=== PATIENT | female | born 1980 | race Caucasian/White ===

== ENCOUNTER 2017-09-19 22:29 | Inpatient (IN) | payer MEDICAID ==
[~2017-09-19] VITALS: Ht 172.7 cm; Wt 63.5 kg
[~2017-09-19 22:29] MED LIST: CEPH500C5 PO
[2017-09-19] MEDS ORDERED: NO HOME MEDS (22:55)
[2017-09-20] MEDS ORDERED: normal saline 1000ML IV soln IV ONE (00:25)
[2017-09-20] MEDS ORDERED: piperacillin/tazo 3.375gm/50ml 50 ML IV ONE (00:25)
[2017-09-20] MEDS ORDERED: vancomycin/NS 1 GM ADD-VANTAGE 250 ML IV ONE (00:25)
[2017-09-20] MEDS ORDERED: TETanus/Pertussis (Acell)/Diphther VAC/PF (Tdap-Adult) 0.5ml syringe IM ONE (00:25)
[2017-09-20 00:34] LABS: HEMOGLOBIN 10.9 g/dl (12.0-16.0); MEAN CORPUSCULAR HEMOGLOBIN 28.8 PG (27.0-31.0); RED CELL DISTRIBUTION WIDTH 12.9 % (11.5-14.5)
[2017-09-20 00:36] LABS: BASOPHILS # (AUTO) 0.1 X10'3 (0-0.2); EOSINOPHILS # (AUTO) 0.3 X10'3 (0-0.9); EOSINOPHILS % (AUTO) 5.3 % (0-6); HEMATOCRIT 31.5 % (35.0-45.0); LYMPHOCYTES # (AUTO) 0.9 X10'3 (1.1-4.8); LYMPHOCYTES % (AUTO) 17.5 % (21-51); MEAN CORPUSCULAR HGB CONC 34.6 % (33.0-36.5); MEAN CORPUSCULAR VOLUME 83.2 FL (78-98); MONOCYTES # (AUTO) 0.4 X10'3 (0-0.9); NEUTROPHILS # (AUTO) 3.4 X10'3 (1.8-7.7); NEUTROPHILS % (AUTO) 68.2 % (42-75); PLATELET COUNT 292 X10'3 (140-440); RED BLOOD COUNT 3.79 X10'6 (4.20-5.60); WHITE BLOOD COUNT 5.1 X10'3 (4.5-11.0)
[2017-09-20 00:47] LABS: ALANINE AMINOTRANSFERASE 271 U/L (12-78); ALBUMIN 3.4 G/DL (3.4-5.0); ALKALINE PHOSPHATASE 141 IU/L (46-116); ANION GAP 9 (8-16); ASPARTATE AMINO TRANSFERASE 302 U/L (10-37); BILIRUBIN,TOTAL 0.5 MG/DL (0.1-1.0); BLOOD UREA NITROGEN 10 MG/DL (7-18); BUN/CREATININE RATIO 11.9 (6.6-38.0); CALCIUM 8.8 MG/DL (8.5-10.1); CHLORIDE 104 MMOL/L (99-107); CREATININE 0.84 MG/DL (0.40-0.90); GLUCOSE 127 MG/DL (70-104); MAGNESIUM 1.8 MG/DL (1.5-2.4); SODIUM 140 MMOL/L (135-145); TOTAL CARBON DIOXIDE 26.8 MMOL/L (24-32); TOTAL PROTEIN 6.8 G/DL (6.4-8.2); eGFR 77 ML/MIN
[2017-09-20] MEDS ORDERED: nicotine 14mg patch - 24hr TD ONE ×2 (01:00→01:30)
[2017-09-20] MEDS ORDERED: morphine 4 MG/ML inj SYRINge IV ONE (01:25)
[2017-09-20] MEDS ORDERED: ondansetron/PF 4mg/2ml inj IV ONE (01:25)
[2017-09-20] MEDS ORDERED: magnesium hydroxide 30ml (MOM) UD suspension PO PRN ×2 (01:30→17:10)
[2017-09-20] MEDS ORDERED: acetaminophen 325mg tablet PO PRN ×2 (01:30)
[2017-09-20] MEDS ORDERED: ibuprofen tablet 400 MG TABLET PO PRN (01:30)
[2017-09-20] MEDS ORDERED: mag hydrox/Alum hydrox/simeth 30ml oral suspension PO PRN (01:30)
[2017-09-20] MEDS ORDERED: ondansetron/PF 4mg/2ml inj IV PRN (01:30)
[2017-09-20 02:08] LABS: URINE AMPHETAMINE SCREEN POSITIVE (Neg); URINE BARBITUATE SCREEN NEGATIVE (Neg); URINE BENZODIAZEPINES SCREEN POSITIVE (Neg); URINE CANNABINOID SCREEN POSITIVE (Neg); URINE COCAINE SCREEN NEGATIVE (Neg); URINE METHADONE SCREEN POSITIVE (Neg); URINE OPIATE SCREEN POSITIVE (Neg); URINE PHENCYCLIDINE SCREEN NEGATIVE (Neg)
[2017-09-20 03:00] VITALS: BP 94/54
[2017-09-20 06:00] VITALS: BP 88/52
[2017-09-20] MEDS: HYDROcodone/acetaminophen 5mg/325mg tablet PO PRN ×4 (07:21→20:26)
[2017-09-20] MEDS: enoxaparin 40mg/0.4ml syringe SQ SCH (07:22)
[2017-09-20 10:00] VITALS: BP 106/67
[2017-09-20] MEDS: piperacillin/tazo 3.375gm/50ml 50 ML IV SCH ×3 (12:32→19:49)
[2017-09-20] MEDS: vancomycin/NS 1 GM ADD-VANTAGE 250 ML IV SCH ×2 (13:16→20:26)
[2017-09-20] MEDS ORDERED: magnesium hydroxide 30ml (MOM) UD suspension PO ONE (17:05)
[2017-09-20 18:00] VITALS: BP 105/70
[2017-09-20 21:38] VITALS: BP 146/68
[2017-09-20 22:00] VITALS: BP 99/59
[2017-09-21] MEDS: piperacillin/tazo 3.375gm/50ml 50 ML IV SCH ×4 (01:25→20:46)
[2017-09-21] MEDS: vancomycin/NS 1 GM ADD-VANTAGE 250 ML IV SCH ×2 (04:05→13:56)
[2017-09-21] MEDS: HYDROcodone/acetaminophen 5mg/325mg tablet PO PRN ×4 (05:25→18:56)
[2017-09-21 06:00] VITALS: BP 108/70
[2017-09-21 06:17] LABS: BASOPHILS % (AUTO) 0.9 % (0-1); EOSINOPHILS # (AUTO) 0.3 X10'3 (0-0.9); EOSINOPHILS % (AUTO) 6.4 % (0-6); HEMATOCRIT 34.8 % (35.0-45.0); LYMPHOCYTES % (AUTO) 21.3 % (21-51); MEAN CORPUSCULAR HEMOGLOBIN 29.1 PG (27.0-31.0); MEAN CORPUSCULAR HGB CONC 34.5 % (33.0-36.5); MEAN CORPUSCULAR VOLUME 84.5 FL (78-98); MEAN PLATELET VOLUME 7.7 FL (7.4-10.4); MONOCYTES # (AUTO) 0.4 X10'3 (0-0.9); MONOCYTES % (AUTO) 7.7 % (2-12); NEUTROPHILS % (AUTO) 63.7 % (42-75); PLATELET COUNT 274 X10'3 (140-440); RED BLOOD COUNT 4.12 X10'6 (4.20-5.60); RED CELL DISTRIBUTION WIDTH 12.6 % (11.5-14.5); WHITE BLOOD COUNT 4.7 X10'3 (4.5-11.0)
[2017-09-21 06:30] LABS: ALBUMIN 2.8 G/DL (3.4-5.0); ANION GAP 7 (8-16); BLOOD UREA NITROGEN 8 MG/DL (7-18); BUN/CREATININE RATIO 8.2 (6.6-38.0); CALCIUM 8.7 MG/DL (8.5-10.1); CHLORIDE 106 MMOL/L (99-107); CREATININE 0.97 MG/DL (0.40-0.90); GLUCOSE 102 MG/DL (70-104); POTASSIUM 4.1 MMOL/L (3.5-5.1); SODIUM 140 MMOL/L (135-145); TOTAL CARBON DIOXIDE 27.1 MMOL/L (24-32); eGFR 65 ML/MIN
[2017-09-21] MEDS: enoxaparin 40mg/0.4ml syringe SQ SCH (09:44)
[2017-09-21] MEDS: nicotine 21mg patch - 24 hr TD SCH (10:45)
[2017-09-21] MEDS ORDERED: gadopentetate dimeglumine 7.5 MMOL/15 ML syringe ONE (11:03)
[2017-09-21 11:30] VITALS: BP 95/58
[2017-09-21] MEDS ORDERED: VANCOMYCIN LEVEL IV NR (12:30)
[2017-09-21 13:21] LABS: HBSAG SCREEN Negative (Negative); HEP A AB, IGM Negative (Negative); HEP B CORE AB, IGM Negative (Negative); HEPATITIS C ANTIBODY >11.0 s/co ratio (0.0-0.9)
[2017-09-21 19:00] VITALS: BP 105/69
[2017-09-21] MEDS: lactobacillus rhamnosus 10,000 MMU CELLS/CAPSULE PO SCH (20:48)
[2017-09-21] MEDS: vancomycin inj 1,250 MG in normal saline 250ml IV soln 250 ML IV SCH (21:40)
[2017-09-21 23:00] VITALS: BP 97/58
[2017-09-22] MEDS: HYDROcodone/acetaminophen 5mg/325mg tablet PO PRN ×4 (01:26→14:20)
[2017-09-22] MEDS: piperacillin/tazo 3.375gm/50ml 50 ML IV SCH ×2 (02:04→09:28)
[2017-09-22] MEDS: vancomycin inj 1,250 MG in normal saline 250ml IV soln 250 ML IV SCH (05:21)
[2017-09-22 06:00] VITALS: BP 102/57
[2017-09-22 06:27] LABS: ALANINE AMINOTRANSFERASE 226 U/L (12-78); ALBUMIN 2.7 G/DL (3.4-5.0); ALBUMIN/GLOBULIN RATIO 0.8 (1.1-1.5); ALKALINE PHOSPHATASE 115 IU/L (46-116); ANION GAP 9 (8-16); ASPARTATE AMINO TRANSFERASE 127 U/L (10-37); BILIRUBIN,DIRECT 0.1 MG/DL (0-0.3); BILIRUBIN,TOTAL 0.4 MG/DL (0.1-1.0); BLOOD UREA NITROGEN 6 MG/DL (7-18); BUN/CREATININE RATIO 6.7 (6.6-38.0); CALCIUM 8.6 MG/DL (8.5-10.1); CHLORIDE 107 MMOL/L (99-107); GLUCOSE 98 MG/DL (70-104); POTASSIUM 3.7 MMOL/L (3.5-5.1); SODIUM 140 MMOL/L (135-145); TOTAL CARBON DIOXIDE 24.4 MMOL/L (24-32); TOTAL PROTEIN 6.2 G/DL (6.4-8.2); eGFR 71 ML/MIN
[2017-09-22 06:49] LABS: BASOPHILS % (AUTO) 0.9 % (0-1); EOSINOPHILS # (AUTO) 0.3 X10'3 (0-0.9); HEMATOCRIT 34.8 % (35.0-45.0); HEMOGLOBIN 11.9 g/dl (12.0-16.0); LYMPHOCYTES # (AUTO) 1.4 X10'3 (1.1-4.8); LYMPHOCYTES % (AUTO) 31.8 % (21-51); MEAN CORPUSCULAR HEMOGLOBIN 28.7 PG (27.0-31.0); MEAN CORPUSCULAR HGB CONC 34.2 % (33.0-36.5); MEAN CORPUSCULAR VOLUME 83.9 FL (78-98); MEAN PLATELET VOLUME 7.6 FL (7.4-10.4); MONOCYTES # (AUTO) 0.3 X10'3 (0-0.9); MONOCYTES % (AUTO) 7.8 % (2-12); NEUTROPHILS # (AUTO) 2.4 X10'3 (1.8-7.7); NEUTROPHILS % (AUTO) 53.5 % (42-75); PLATELET COUNT 290 X10'3 (140-440); RED BLOOD COUNT 4.15 X10'6 (4.20-5.60); RED CELL DISTRIBUTION WIDTH 12.3 % (11.5-14.5); WHITE BLOOD COUNT 4.5 X10'3 (4.5-11.0)
[2017-09-22 08:46] LABS: HIV ANTIBODY 1&2 RAPID NON-REACTIVE (Neg)
[2017-09-22] MEDS: lactobacillus rhamnosus 10,000 MMU CELLS/CAPSULE PO SCH (09:28)
[2017-09-22] MEDS: nicotine 21mg patch - 24 hr TD SCH (09:29)
[2017-09-22 10:00] VITALS: BP 109/69
[2017-09-22] MEDS ORDERED: LORazepam 0.5 MG tablet PO PRN (10:00)
[2017-09-22] MEDS ORDERED: VANCOMYCIN LEVEL IV ONE (20:30)
== END 2017-09-22 16:25 | disposition left against medical advice (07) | DRG 383 ==
LOC: ER 22:30 → ED HOLD 09-20 01:27 → ORTHO 4S 09-20 02:40 → CMPBEDREQ 09-20 19:40
PROVIDERS: ADMIT Hospitalist; ATTEND Family Medicine
DX: L03.115 Cellulitis of right lower limb (principal); F32.9 Major depressive disorder, single episode, unspecified; L03.116 Cellulitis of left lower limb; F17.200 Nicotine dependence, unspecified, uncomplicated; F15.10 Other stimulant abuse, uncomplicated; F41.9 Anxiety disorder, unspecified; R74.0 Nonspecific elevation of levels of transaminase and lactic acid dehydrogenase [LDH]; B19.20 Unspecified viral hepatitis C without hepatic coma; X58.XXXA Exposure to other specified factors, initial encounter; R01.1 Cardiac murmur, unspecified; Z53.21 Procedure and treatment not carried out due to patient leaving prior to being seen by health care provider; S81.802D Unspecified open wound, left lower leg, subsequent encounter; Z56.0 Unemployment, unspecified; Z98.891 History of uterine scar from previous surgery; Z98.51 Tubal ligation status; Z88.6 Allergy status to analgesic agent; Z88.8 Allergy status to other drugs, medicaments and biological substances; Z79.899 Other long term (current) drug therapy; Z86.14 Personal history of Methicillin resistant Staphylococcus aureus infection
CPT/HCPCS: 36415; 73721; 80048; 80053; 80074; 80076; 80202; 80305; 83605; 83735; 84145; 85025; 86703; 87040; 87070; 87077; 87186; 90715; 93005; 93306; 93971; 96365; 96372; 99285; A4649; A6213; A6222; A6223; A6446; A6449; A9579; J1650; J2270; J2405; J2543; J3370; J7030

== ENCOUNTER 2018-12-18 14:57 | Emergency (ER) | payer MEDICAID ==
[~2018-12-18] VITALS: Ht 170.2 cm; Wt 63.4 kg
[~2018-12-18 14:57] MED LIST changes: -CEPH500C5 PO; +NO HOME MEDS
[2018-12-18] MEDS ORDERED: LIDOcaine 1% w/EPI 1:200,000 injection 10mL vial IM ONE (15:25)
[2018-12-18] MEDS ORDERED: SULF1TAB49 PO (15:29)
[2018-12-18] MEDS ORDERED: CEPH-572 PO (15:29)
[2018-12-18] MEDS ORDERED: LIDOcaine 1% W/epiNEPHrine 1:200,000 10ml vial IJ ONE (15:35)
[2018-12-18] MEDS ORDERED: IBUP-1984 PO (16:13)
[2018-12-18] MEDS ORDERED: ibuprofen tablet 400 MG TABLET PO ONE (16:15)
[2018-12-18 16:32] VITALS: BP 105/69
== END 2018-12-18 16:30 | disposition home or self-care (01) ==
LOC: ER 14:57
DX: L02.31 Cutaneous abscess of buttock (principal); G89.29 Other chronic pain; F41.9 Anxiety disorder, unspecified; F32.9 Major depressive disorder, single episode, unspecified; F15.90 Other stimulant use, unspecified, uncomplicated; F11.90 Opioid use, unspecified, uncomplicated; F10.99 Alcohol use, unspecified with unspecified alcohol-induced disorder; Z56.0 Unemployment, unspecified; Z88.8 Allergy status to other drugs, medicaments and biological substances; Z88.5 Allergy status to narcotic agent; Z79.899 Other long term (current) drug therapy; Y90.9 Presence of alcohol in blood, level not specified
CPT/HCPCS: 10061; 87070; 87077; 87186; 99284

== ENCOUNTER 2019-02-08 12:10 | Emergency (ER) | payer MEDICAID ==
[~2019-02-08] VITALS: Ht 172.7 cm; Wt 60.9 kg
[2019-02-08 12:27] VITALS: BP 108/70
[2019-02-08] MEDS ORDERED: CEPH-572 PO (15:54)
[2019-02-08] MEDS ORDERED: SULF1TAB49 PO (15:54)
[2019-02-08] MEDS ORDERED: IBUP-1985 PO (15:57)
== END 2019-02-08 16:01 | disposition home or self-care (01) ==
LOC: ER 12:11
DX: L02.415 Cutaneous abscess of right lower limb (principal); F11.10 Opioid abuse, uncomplicated; G89.29 Other chronic pain; F41.9 Anxiety disorder, unspecified; F32.9 Major depressive disorder, single episode, unspecified; F15.90 Other stimulant use, unspecified, uncomplicated; Z56.0 Unemployment, unspecified; Z88.5 Allergy status to narcotic agent; Z88.8 Allergy status to other drugs, medicaments and biological substances; Z79.899 Other long term (current) drug therapy
CPT/HCPCS: 10061; 99284

== ENCOUNTER 2019-02-11 15:10 | Inpatient (IN) | payer MEDICAID ==
[~2019-02-11] VITALS: Ht 172.7 cm; Wt 61.4 kg
[~2019-02-11 15:10] MED LIST changes: +CEPH-572 PO; +IBUP-1985 PO; +SULF1TAB49 PO
--- NOTE | 2019-02-11 15:30 | NUR ---
AWAITING ED PROVIDER.
[2019-02-11] MEDS ORDERED: LIDOcaine 1% w/EPI 1:200,000 injection 10mL vial IM ONE (16:05)
[2019-02-11] MEDS ORDERED: LIDOcaine 1% W/epiNEPHrine 1:200,000 10ml vial IJ ONE (16:10)
[2019-02-11 16:21] LABS: BASOPHILS # (AUTO) 0.1 X10'3 (0-0.2); EOSINOPHILS # (AUTO) 0.5 X10'3 (0-0.9); EOSINOPHILS % (AUTO) 5.8 % (0-6); HEMATOCRIT 30.3 % (35.0-45.0); HEMOGLOBIN 10.8 g/dl (12.0-16.0); LYMPHOCYTES # (AUTO) 1.4 X10'3 (1.1-4.8); LYMPHOCYTES % (AUTO) 17.6 % (21-51); MEAN CORPUSCULAR HEMOGLOBIN 29.2 PG (27.0-31.0); MEAN CORPUSCULAR HGB CONC 35.6 g/dL (33.0-36.5); MEAN PLATELET VOLUME 7.2 FL (7.4-10.4); MONOCYTES # (AUTO) 0.6 X10'3 (0-0.9); MONOCYTES % (AUTO) 7.5 % (2-12); NEUTROPHILS # (AUTO) 5.3 X10'3 (1.8-7.7); NEUTROPHILS % (AUTO) 68.1 % (42-75); PLATELET COUNT 335 X10'3 (140-440); RED CELL DISTRIBUTION WIDTH 12.5 % (11.5-14.5); WHITE BLOOD COUNT 7.8 X10'3 (4.5-11.0)
[2019-02-11 16:30] LABS: ALANINE AMINOTRANSFERASE 56 U/L (12-78); ALBUMIN/GLOBULIN RATIO 0.8 (1.1-1.5); ALKALINE PHOSPHATASE 111 IU/L (46-116); ANION GAP 8 (8-16); ASPARTATE AMINO TRANSFERASE 44 U/L (10-37); BILIRUBIN,TOTAL 0.3 MG/DL (0.1-1.0); BLOOD UREA NITROGEN 14 MG/DL (7-18); CALCIUM 8.4 MG/DL (8.5-10.1); CHLORIDE 106 MMOL/L (99-107); GLUCOSE 86 MG/DL (70-104); POTASSIUM 4.2 MMOL/L (3.5-5.1); SODIUM 142 MMOL/L (135-145); TOTAL CARBON DIOXIDE 28.3 MMOL/L (24-32); TOTAL PROTEIN 6.8 G/DL (6.4-8.2); eGFR > 90 ML/MIN
[2019-02-11] MEDS ORDERED: HYDROcodone/acetaminophen 5mg/325mg tablet PO ONE ×3 (16:30→17:10)
[2019-02-11] MEDS ORDERED: LORazepam 1 MG tablet PO ONE (17:05)
[2019-02-11] MEDS ORDERED: normal saline 1000ML IV soln IVB ONE (17:10)
[2019-02-11] MEDS ORDERED: piperacillin/tazo 3.375gm/50ml 50 ML IV ONE (17:10)
[2019-02-11] MEDS ORDERED: vancomycin/NS 1 GM ADD-VANTAGE 250 ML IV ONE (17:10)
[2019-02-11] MEDS ORDERED: LORazepam 2 mg/ml vial IV ONE (17:10)
[2019-02-11] MEDS ORDERED: ondansetron/PF 4mg/2ml inj IV PRN (17:50)
[2019-02-11] MEDS ORDERED: HYDROcodone/acetaminophen 5mg/325mg tablet PO PRN (17:50)
[2019-02-11] MEDS ORDERED: acetaminophen 325mg tablet PO PRN (17:50)
[2019-02-11] MEDS ORDERED: mag hydrox/Alum hydrox/simeth 30ml oral suspension PO PRN (17:50)
[2019-02-11] MEDS ORDERED: morphine 2 MG/ML inj. syringe IV PRN ×2 (17:50)
[2019-02-11] MEDS ORDERED: magnesium hydroxide 30ml (MOM) UD suspension PO PRN (17:50)
--- NOTE | 2019-02-11 18:00 | NUR ---
PATIENT TO BE PLACED IN CLEAN GOWN
[2019-02-11] MEDS ORDERED: GABA-532 PO (18:58)
[2019-02-11] MEDS ORDERED: DULO20CA18 PO (18:58)
--- NOTE | 2019-02-11 18:59 | NUR ---
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
--- NOTE | 2019-02-11 19:00 | NUR ---
Called to give report. awaiting call back.
--- NOTE | 2019-02-11 19:02 | NUR ---
ALL PATIENT BELONGINGS TO GO HOME WITH HER MOTHER
--- NOTE | 2019-02-11 19:05 | NUR ---
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
[2019-02-11] MEDS ORDERED: SULF1TAB49 PO (19:09)
[2019-02-11] MEDS ORDERED: CEPH500C2 PO (19:09)
[2019-02-11] MEDS ORDERED: IBUP-1985 PO (19:09)
--- NOTE | 2019-02-11 19:10 | NUR ---
Patient in room ED 6. I have received report from JOSELITO SRINIVASAN and had the opportunity to ask questions and assume patient care.
--- NOTE | 2019-02-11 19:23 | NUR ---
security in room removing contraband.
--- NOTE | 2019-02-11 19:24 | NUR ---
Spoke to floor nurse and she was aware that a urine sample needs to be obtained.
--- NOTE | 2019-02-11 19:59 | NUR ---
attempted to DART pt she was currently eating, asked for me to come back later.
[2019-02-11] MEDS ORDERED: vancomycin/NS 1 GM ADD-VANTAGE 250 ML IV SCH (20:00)
--- NOTE | 2019-02-11 20:00 | NUR ---
ON SURGICAL FLOOR, MOTHER TOOK ALL OF PATIENT'S BELONGINGS HOME INCLUDING 2 KNIVES, LIGHTERS AND PIPES.
[2019-02-11 20:45] VITALS: BP 110/72
[2019-02-11] MEDS ORDERED: nicotine 14mg patch - 24hr TD SCH (20:50)
[2019-02-11 22:00] VITALS: BP 87/50
[2019-02-11 22:14] LABS: CLARITY,URINE SLIGHTLY CLOUDY (Clear); GLUCOSE, URINE NEGATIVE (Neg); KETONES,URINE NEGATIVE (Neg); LEUKOCYTE ESTERASE ,URINE NEGATIVE (Neg); NITRITES, URINE NEGATIVE (Neg); OCCULT BLOOD,URINE NEGATIVE (Neg); PH,URINE 6.5 (4.8-8.0); PROTEIN,URINE TRACE mg/dl (Neg)
[2019-02-11 22:19] LABS: COLOR,URINE DARK YELLOW (Yellow); UA COLLECTION TYPE CLN CATCH MIDSTREAM; URINE AMPHETAMINE SCREEN POSITIVE (Neg); URINE BARBITUATE SCREEN NEGATIVE (Neg); URINE BENZODIAZEPINES SCREEN NEGATIVE (Neg); URINE CANNABINOID SCREEN POSITIVE (Neg); URINE COCAINE SCREEN NEGATIVE (Neg); URINE METHADONE SCREEN NEGATIVE (Neg); URINE OPIATE SCREEN POSITIVE (Neg); URINE PHENCYCLIDINE SCREEN NEGATIVE (Neg)
[2019-02-11 22:24] LABS: BACTERIA,URINE 1+ /HPF (Neg); MUCUS STRANDS MODERATE /LPF (Neg); RBC,URINE NONE SEEN /HPF (0-2); SQUAMOUS EPITHELIAL CELL,UR MANY /LPF (FEW); WBC,URINE 0-4 /HPF (0-4)
[2019-02-12] MEDS ORDERED: normal saline 1000ml 1,000 ML IV ONE ×2 (01:45→03:35)
[2019-02-12] MEDS ORDERED: vancomycin/NS 1 GM ADD-VANTAGE 250 ML IV SCH (02:00)
[2019-02-12] MEDS: HYDROcodone/acetaminophen 10/325mg tab PO PRN ×2 (03:21→08:17)
--- NOTE | 2019-02-12 03:27 | NUR ---
Received report from Kaelyn SRINIVASAN, pt is awake and alert bolus just finished, stephen worley, B/P rechecked:
--- NOTE | 2019-02-12 04:00 | NUR ---
Problems reprioritized. Patient report given, questions answered & plan of care reviewed with Etta SRINIVASAN.
[2019-02-12 04:54] VITALS: BP 90/59
--- NOTE | 2019-02-12 06:17 | NUR ---
Gave report to Mariela SRINIVASAN pt is resting on RA, SL EJ, in no apparent distress.
--- NOTE | 2019-02-12 06:52 | NUR ---
Pt. has false nails. Pulse oximeter should be used on toes rather than fingers for a more accurate reading. Addendum: 02/12/19 at 0652 by Mariela Herzog RN Amended: Links added.
[2019-02-12] MEDS ORDERED: LORA-269 PO (06:56)
[2019-02-12 07:00] VITALS: BP 93/55
[2019-02-12] MEDS ORDERED: enoxaparin 40mg/0.4ml syringe SUBCUT SCH (08:00)
[2019-02-12] MEDS ORDERED: lactobacillus rhamnosus 10,000 MMU CELLS/CAPSULE PO SCH (08:00)
[2019-02-12] MEDS ORDERED: CefTRIAXone/D5W-Rocephin 1gm 50 ML IV SCH (08:00)
[2019-02-12 08:47] LABS: BASOPHILS # (AUTO) 0.1 X10'3 (0-0.2); BASOPHILS % (AUTO) 0.9 % (0-1); EOSINOPHILS # (AUTO) 0.4 X10'3 (0-0.9); EOSINOPHILS % (AUTO) 6.7 % (0-6); HEMATOCRIT 38.9 % (35.0-45.0); HEMOGLOBIN 13.2 g/dl (12.0-16.0); LYMPHOCYTES # (AUTO) 1.7 X10'3 (1.1-4.8); LYMPHOCYTES % (AUTO) 25.1 % (21-51); MEAN CORPUSCULAR HEMOGLOBIN 28.6 PG (27.0-31.0); MEAN CORPUSCULAR VOLUME 84.2 FL (78-98); MEAN PLATELET VOLUME 7.6 FL (7.4-10.4); MONOCYTES # (AUTO) 0.4 X10'3 (0-0.9); MONOCYTES % (AUTO) 6.4 % (2-12); NEUTROPHILS # (AUTO) 4.1 X10'3 (1.8-7.7); NEUTROPHILS % (AUTO) 60.9 % (42-75); PLATELET COUNT 191 X10'3 (140-440); RED BLOOD COUNT 4.62 X10'6 (4.20-5.60); RED CELL DISTRIBUTION WIDTH 12.8 % (11.5-14.5); WHITE BLOOD COUNT 6.7 X10'3 (4.5-11.0)
[2019-02-12 09:36] LABS: ALBUMIN 2.6 G/DL (3.4-5.0); ANION GAP 11 (8-16); BLOOD UREA NITROGEN 10 MG/DL (7-18); BUN/CREATININE RATIO 14.7 (6.6-38.0); CALCIUM 7.7 MG/DL (8.5-10.1); CHLORIDE 107 MMOL/L (99-107); CREATININE 0.68 MG/DL (0.40-0.90); GLUCOSE 89 MG/DL (70-104); POTASSIUM 4.1 MMOL/L (3.5-5.1); SODIUM 144 MMOL/L (135-145); TOTAL CARBON DIOXIDE 26.4 MMOL/L (24-32); eGFR > 90 ML/MIN
--- NOTE | 2019-02-12 10:01 | NUR ---
PAGER ID: [phone] MESSAGE: ALVAREZ WOMACK [phone] PT FOUND BY HOUSEKEEPING SNORTING SOMETHING IN HER NOSE WITH STRAW. 2 SUBSTANCES FOUND ON PT. PT. WANTS TO LEAVE AMA NOW. SECURITY AND LAW ENFORCEMENT INVOLVED. NEED SITTER ON PT. RHONDA [id number]
--- NOTE | 2019-02-12 10:16 | NUR ---
RISKS OF LEAVING AMA HAVE BEEN DISCUSSED WITH PT. SHE IS AWARE AND WOULD STILL LIKE TO LEAVE. AWARE OF AMA. SITTER ESCORTING PT OUT OF HOSPITAL FOR PERSONAL SAFETY.
[2019-02-12] MEDS ORDERED: VANCOMYCIN LEVEL IV ONE (17:30)
== END 2019-02-12 10:18 | disposition left against medical advice (07) | DRG 383 ==
LOC: ER 15:10 → ED HOLD 17:48 → SUR 3N 19:40
PROVIDERS: ADMIT Internal Medicine; ATTEND Internal Medicine
PROC: 0H9HXZZ Drainage of Right Upper Leg Skin, External Approach (ICD-10-PCS; principal; 2019-02-11)
PROC: 0H9HXZZ Drainage of Right Upper Leg Skin, External Approach (ICD-10-PCS; 2019-02-11)
PROC: 0H9HXZZ Drainage of Right Upper Leg Skin, External Approach (ICD-10-PCS; 2019-02-11)
DX: L02.415 Cutaneous abscess of right lower limb (principal); F11.20 Opioid dependence, uncomplicated; F15.90 Other stimulant use, unspecified, uncomplicated; Z53.29 Procedure and treatment not carried out because of patient's decision for other reasons; F32.9 Major depressive disorder, single episode, unspecified; L03.115 Cellulitis of right lower limb; F41.9 Anxiety disorder, unspecified; G89.29 Other chronic pain; M54.9 Dorsalgia, unspecified; Z88.5 Allergy status to narcotic agent; Z86.14 Personal history of Methicillin resistant Staphylococcus aureus infection
CPT/HCPCS: 10061; 36415; 80048; 80053; 80305; 81001; 83605; 84145; 85025; 87040; 87081; 99285; G0378; J0696; J1650; J2060; J2543; J3370; J7030

== ENCOUNTER 2019-02-14 13:26 | Inpatient (IN) | payer MEDICAID ==
[~2019-02-14] VITALS: Ht 172.7 cm; Wt 65.0 kg
[~2019-02-14 13:26] MED LIST changes: +CEPH500C2 PO; +DULO20CA18 PO; +GABA-532 PO; +LORA-269 PO
[2019-02-14] MEDS ORDERED: piperacillin/tazo 3.375gm/50ml 50 ML IV ONE (15:10)
[2019-02-14] MEDS ORDERED: vancomycin/NS 1 GM ADD-VANTAGE 250 ML IV ONE (15:10)
[2019-02-14] MEDS ORDERED: normal saline 1000ML IV soln IV ONE (15:10)
[2019-02-14] MEDS ORDERED: iohexol 300mg/ml 100ml inj. ONE (15:25)
--- NOTE | 2019-02-14 15:29 | NUR ---
PICC NURSE AT BEDSIDE
[2019-02-14 16:01] LABS: BASOPHILS # (AUTO) 0.1 X10'3 (0-0.2); BASOPHILS % (AUTO) 1.2 % (0-1); EOSINOPHILS # (AUTO) 0.4 X10'3 (0-0.9); EOSINOPHILS % (AUTO) 6.1 % (0-6); HEMATOCRIT 30.2 % (35.0-45.0); HEMOGLOBIN 10.5 g/dl (12.0-16.0); LYMPHOCYTES # (AUTO) 1.4 X10'3 (1.1-4.8); LYMPHOCYTES % (AUTO) 22.2 % (21-51); MEAN CORPUSCULAR HEMOGLOBIN 29.1 PG (27.0-31.0); MEAN CORPUSCULAR HGB CONC 34.8 g/dL (33.0-36.5); MEAN CORPUSCULAR VOLUME 83.7 FL (78-98); MEAN PLATELET VOLUME 7.2 FL (7.4-10.4); MONOCYTES # (AUTO) 0.4 X10'3 (0-0.9); MONOCYTES % (AUTO) 5.8 % (2-12); NEUTROPHILS % (AUTO) 64.7 % (42-75); PLATELET COUNT 346 X10'3 (140-440); RED BLOOD COUNT 3.61 X10'6 (4.20-5.60); RED CELL DISTRIBUTION WIDTH 12.4 % (11.5-14.5); WHITE BLOOD COUNT 6.1 X10'3 (4.5-11.0)
[2019-02-14 16:17] LABS: ALANINE AMINOTRANSFERASE 44 U/L (12-78); ALBUMIN 3.1 G/DL (3.4-5.0); ALBUMIN/GLOBULIN RATIO 0.9 (1.1-1.5); ALKALINE PHOSPHATASE 112 IU/L (46-116); ANION GAP 6 (8-16); ASPARTATE AMINO TRANSFERASE 42 U/L (10-37); BILIRUBIN,TOTAL 0.2 MG/DL (0.1-1.0); BLOOD UREA NITROGEN 10 MG/DL (7-18); BUN/CREATININE RATIO 12.8 (6.6-38.0); CALCIUM 8.5 MG/DL (8.5-10.1); CHLORIDE 105 MMOL/L (99-107); CREATININE 0.78 MG/DL (0.40-0.90); ETHANOL < 0.010 GM/DL (0.0-0.010); GLUCOSE 91 MG/DL (70-104); POTASSIUM 3.9 MMOL/L (3.5-5.1); SODIUM 139 MMOL/L (135-145); TOTAL CARBON DIOXIDE 28.1 MMOL/L (24-32); TOTAL PROTEIN 6.7 G/DL (6.4-8.2); eGFR 83 ML/MIN
[2019-02-14] MEDS ORDERED: magnesium 4gm in 100ml NS 100 ML IV PRN (17:15)
[2019-02-14] MEDS ORDERED: magnesium Cl slow-release 64mg tablet PO PRN (17:15)
[2019-02-14] MEDS ORDERED: normal saline 1000ml 1,000 ML IV ONE (17:15)
[2019-02-14] MEDS ORDERED: magnesium 2GM in 50ml NS 50 ML IV PRN (17:15)
[2019-02-14] MEDS ORDERED: mag hydrox/Alum hydrox/simeth 30ml oral suspension PO PRN (17:15)
[2019-02-14] MEDS ORDERED: HYDROcodone/acetaminophen 10/325mg tab PO ONE (17:15)
[2019-02-14] MEDS ORDERED: potassium CL 10mEq/100ml bag 100 ML IV PRN ×2 (17:15)
[2019-02-14] MEDS ORDERED: morphine 2 MG/ML inj. syringe IV PRN (17:15)
[2019-02-14] MEDS ORDERED: acetaminophen 325mg tablet PO PRN ×2 (17:15)
[2019-02-14] MEDS ORDERED: potassium Cl 20 mEq SR tablet PO PRN ×2 (17:15)
[2019-02-14] MEDS ORDERED: HYDROcodone/acetaminophen 5mg/325mg tablet PO PRN (17:15)
[2019-02-14] MEDS ORDERED: magnesium hydroxide 30ml (MOM) UD suspension PO PRN (17:15)
[2019-02-14] MEDS ORDERED: ondansetron/PF 4mg/2ml inj IV PRN (17:15)
[2019-02-14 18:31] LABS: CLARITY,URINE CLEAR (Clear); COLOR,URINE YELLOW (Yellow); GLUCOSE, URINE NEGATIVE (Neg); KETONES,URINE NEGATIVE (Neg); LEUKOCYTE ESTERASE ,URINE NEGATIVE (Neg); NITRITES, URINE NEGATIVE (Neg); OCCULT BLOOD,URINE NEGATIVE (Neg); PH,URINE 6.5 (4.8-8.0); PROTEIN,URINE NEGATIVE (Neg); UA COLLECTION TYPE CLN CATCH MIDSTREAM
[2019-02-14 18:32] LABS: URINE HCG NEGATIVE (NEG)
[2019-02-14 18:44] LABS: URINE AMPHETAMINE SCREEN POSITIVE (Neg); URINE BARBITUATE SCREEN NEGATIVE (Neg); URINE BENZODIAZEPINES SCREEN NEGATIVE (Neg); URINE CANNABINOID SCREEN POSITIVE (Neg); URINE COCAINE SCREEN NEGATIVE (Neg); URINE METHADONE SCREEN NEGATIVE (Neg); URINE OPIATE SCREEN POSITIVE (Neg); URINE PHENCYCLIDINE SCREEN NEGATIVE (Neg)
--- NOTE | 2019-02-14 19:39 | NUR ---
Patient up independently to restroom at this time. Gait steady, balanced, no signs of distress noted.
[2019-02-14] MEDS: morphine 2 MG/ML inj. syringe IV PRN (19:48)
[2019-02-14] MEDS: lactobacillus rhamnosus 10,000 MMU CELLS/CAPSULE PO SCH (19:48)
[2019-02-14] MEDS: gabapentin 300mg capsule PO SCH (19:49)
[2019-02-14] MEDS: LORazepam 1 MG tablet PO PRN (19:49)
--- NOTE | 2019-02-14 21:07 | NUR ---
Patient in room ED 16. I have received report from CRAIG Hassan and had the opportunity to ask questions and assume patient care.
[2019-02-14] MEDS: HYDROcodone/acetaminophen 10/325mg tab PO PRN (21:31)
[2019-02-14 21:40] VITALS: BP 109/68
[2019-02-14] MEDS ORDERED: nicotine 14mg patch - 24hr TD ONE (21:50)
[2019-02-14] MEDS ORDERED: gabapentin 300mg capsule PO SCH (22:00)
[2019-02-14] MEDS ORDERED: gabapentin 400mg capsule PO ONE (22:25)
[2019-02-14] MEDS: vancomycin/NS 1 GM ADD-VANTAGE 250 ML IV SCH (23:50)
[2019-02-15] VITALS: BP 105/69
[2019-02-15] MEDS: piperacillin/tazo 3.375gm/50ml 50 ML IV SCH ×2 (01:16→09:28)
[2019-02-15 01:57] VITALS: BP 93/64
--- NOTE | 2019-02-15 01:58 | NUR ---
Telemetry called, patient HR in the 40's, junctional. Woke patient up, HR climbed to the 70's. Called telemetry back who stated HR has increased and no longer junctional. Has gone into junctional rhythm a couple of times, per tele, but will pop back into SR. States HR goes all over the place. Will continue to monitor.
[2019-02-15] MEDS: HYDROcodone/acetaminophen 10/325mg tab PO PRN ×2 (02:03→09:27)
[2019-02-15 05:04] LABS: BASOPHILS # (AUTO) 0.1 X10'3 (0-0.2); BASOPHILS % (AUTO) 1.1 % (0-1); EOSINOPHILS # (AUTO) 0.3 X10'3 (0-0.9); EOSINOPHILS % (AUTO) 6.5 % (0-6); HEMATOCRIT 26.5 % (35.0-45.0); HEMOGLOBIN 9.4 g/dl (12.0-16.0); LYMPHOCYTES # (AUTO) 1.4 X10'3 (1.1-4.8); LYMPHOCYTES % (AUTO) 25.7 % (21-51); MEAN CORPUSCULAR HEMOGLOBIN 28.8 PG (27.0-31.0); MEAN CORPUSCULAR HGB CONC 35.3 g/dL (33.0-36.5); MEAN CORPUSCULAR VOLUME 81.6 FL (78-98); MEAN PLATELET VOLUME 7.4 FL (7.4-10.4); MONOCYTES # (AUTO) 0.4 X10'3 (0-0.9); MONOCYTES % (AUTO) 6.8 % (2-12); NEUTROPHILS # (AUTO) 3.2 X10'3 (1.8-7.7); NEUTROPHILS % (AUTO) 59.9 % (42-75); PLATELET COUNT 297 X10'3 (140-440); RED BLOOD COUNT 3.25 X10'6 (4.20-5.60); RED CELL DISTRIBUTION WIDTH 12.4 % (11.5-14.5); WHITE BLOOD COUNT 5.3 X10'3 (4.5-11.0)
[2019-02-15 05:20] LABS: ALBUMIN 2.4 G/DL (3.4-5.0); ANION GAP 9 (8-16); BLOOD UREA NITROGEN 10 MG/DL (7-18); BUN/CREATININE RATIO 14.3 (6.6-38.0); CALCIUM 8.3 MG/DL (8.5-10.1); CHLORIDE 110 MMOL/L (99-107); GLUCOSE 98 MG/DL (70-104); MAGNESIUM 1.9 MG/DL (1.5-2.4); POTASSIUM 4.1 MMOL/L (3.5-5.1); SODIUM 143 MMOL/L (135-145); TOTAL CARBON DIOXIDE 24.5 MMOL/L (24-32); eGFR > 90 ML/MIN
--- NOTE | 2019-02-15 06:24 | NUR ---
Problems reprioritized. Patient report given, questions answered & plan of care reviewed with CRAIG Bello.
--- NOTE | 2019-02-15 06:30 | NUR ---
Patient in room [facility]. I have received report from Irene Chance RN and had the opportunity to ask questions and assume patient care.
[2019-02-15 07:30] VITALS: BP 103/62
[2019-02-15] MEDS: morphine 2 MG/ML inj. syringe IV PRN ×2 (07:43→12:05)
[2019-02-15] MEDS: lactobacillus rhamnosus 10,000 MMU CELLS/CAPSULE PO SCH (07:46)
[2019-02-15] MEDS: vancomycin/NS 1 GM ADD-VANTAGE 250 ML IV SCH (07:48)
[2019-02-15] MEDS: gabapentin 300mg capsule PO SCH (07:48)
[2019-02-15] MEDS ORDERED: K and/or MAG REPLACEMENT MC SCH (08:00)
[2019-02-15] MEDS ORDERED: nicotine 14mg patch - 24hr TD SCH (08:00)
[2019-02-15] MEDS ORDERED: enoxaparin 40mg/0.4ml syringe SQ SCH (08:00)
[2019-02-15] MEDS: LORazepam 1 MG tablet PO PRN (09:23)
[2019-02-15 11:00] VITALS: BP 105/68
[2019-02-15] MEDS ORDERED: CLIN-5 PO (13:18)
--- NOTE | 2019-02-15 13:30 | NUR ---
Patient was going to leave AMA, patients wounds were assessed by the MD and patient discharge was done. Patient was sent home with antibiotics, and no other changes to her medications. Patient left with wound care items and iv was out upon discharge. [facility] No other resources were rendered at this time
[2019-02-15] MEDS ORDERED: VANCOMYCIN LEVEL IV ONE ×2 (14:30)
== END 2019-02-15 13:31 | disposition home or self-care (01) | DRG 383 ==
LOC: ER 13:27 → ED HOLD 17:13 → SUR 3N 21:10
PROVIDERS: ADMIT Hospitalist; ATTEND Family Medicine
PROC: B42G1ZZ Computerized Tomography (CT Scan) of Left Lower Extremity Arteries using Low Osmolar Contrast (ICD-10-PCS; principal; 2019-02-14)
DX: L03.116 Cellulitis of left lower limb (principal); D64.9 Anemia, unspecified; L03.115 Cellulitis of right lower limb; L02.416 Cutaneous abscess of left lower limb; L02.415 Cutaneous abscess of right lower limb; F32.9 Major depressive disorder, single episode, unspecified; F17.210 Nicotine dependence, cigarettes, uncomplicated; F11.10 Opioid abuse, uncomplicated; G89.29 Other chronic pain; M54.9 Dorsalgia, unspecified; F41.9 Anxiety disorder, unspecified; F12.10 Cannabis abuse, uncomplicated; Z88.5 Allergy status to narcotic agent; Z88.6 Allergy status to analgesic agent; Z88.1 Allergy status to other antibiotic agents; Z86.14 Personal history of Methicillin resistant Staphylococcus aureus infection
CPT/HCPCS: 36415; 71045; 73701; 80048; 80053; 80305; 80320; 81003; 81025; 83605; 83735; 84145; 85025; 85610; 87040; 87081; 96365; 99285; G0378; J1650; J2270; J2543; J3370; Q9967

== ENCOUNTER 2019-03-28 20:33 | Emergency (ER) | payer MEDICAID ==
[~2019-03-28] VITALS: Ht 172.7 cm; Wt 63.6 kg
[~2019-03-28 20:33] MED LIST changes: -CEPH-572 PO; -CEPH500C2 PO; +CLIN-5 PO; -NO HOME MEDS; -SULF1TAB49 PO
[2019-03-28 20:54] VITALS: BP 127/84
[2019-03-28 22:03] LABS: BASOPHILS # (AUTO) 0.1 X10'3 (0-0.2); BASOPHILS % (AUTO) 0.9 % (0-1); EOSINOPHILS # (AUTO) 0.5 X10'3 (0-0.9); EOSINOPHILS % (AUTO) 4.1 % (0-6); HEMATOCRIT 33.3 % (35.0-45.0); HEMOGLOBIN 11.7 g/dl (12.0-16.0); LYMPHOCYTES # (AUTO) 1.6 X10'3 (1.1-4.8); LYMPHOCYTES % (AUTO) 14.7 % (21-51); MEAN CORPUSCULAR HEMOGLOBIN 28.4 PG (27.0-31.0); MEAN CORPUSCULAR HGB CONC 35.1 g/dL (33.0-36.5); MEAN PLATELET VOLUME 7.4 FL (7.4-10.4); MONOCYTES # (AUTO) 0.6 X10'3 (0-0.9); MONOCYTES % (AUTO) 5.7 % (2-12); NEUTROPHILS # (AUTO) 8.3 X10'3 (1.8-7.7); NEUTROPHILS % (AUTO) 74.6 % (42-75); PLATELET COUNT 389 X10'3 (140-440); RED BLOOD COUNT 4.11 X10'6 (4.20-5.60); RED CELL DISTRIBUTION WIDTH 13.1 % (11.5-14.5); WHITE BLOOD COUNT 11.1 X10'3 (4.5-11.0)
[2019-03-28 22:12] LABS: ALANINE AMINOTRANSFERASE 41 U/L (12-78); ALBUMIN 3.8 G/DL (3.4-5.0); ALKALINE PHOSPHATASE 126 IU/L (46-116); ANION GAP 8 (8-16); ASPARTATE AMINO TRANSFERASE 42 U/L (10-37); BILIRUBIN,TOTAL 0.6 MG/DL (0.1-1.0); BLOOD UREA NITROGEN 11 MG/DL (7-18); BUN/CREATININE RATIO 14.1 (6.6-38.0); CHLORIDE 104 MMOL/L (99-107); CREATININE 0.78 MG/DL (0.40-0.90); GLUCOSE 125 MG/DL (70-104); POTASSIUM 3.7 MMOL/L (3.5-5.1); SODIUM 141 MMOL/L (135-145); TOTAL CARBON DIOXIDE 29.4 MMOL/L (24-32); TOTAL PROTEIN 7.7 G/DL (6.4-8.2); eGFR 83 ML/MIN
[2019-03-28] MEDS ORDERED: LIDOcaine 1% W/epiNEPHrine 1:200,000 10ml vial IJ ONE (23:05)
[2019-03-28] MEDS ORDERED: TETanus/Pertussis (Acell)/Diphther VAC/PF (Tdap-Adult) 0.5ml syringe IMVAC ONE (23:05)
[2019-03-28] MEDS ORDERED: CEPH250T PO (23:18)
[2019-03-28] MEDS ORDERED: DOXY100C43 PO (23:18)
== END 2019-03-28 23:40 | disposition home or self-care (01) ==
LOC: ER 20:34
DX: L02.414 Cutaneous abscess of left upper limb (principal); R07.89 Other chest pain; R06.02 Shortness of breath; G89.29 Other chronic pain; F41.9 Anxiety disorder, unspecified; F32.9 Major depressive disorder, single episode, unspecified; F15.90 Other stimulant use, unspecified, uncomplicated; F11.90 Opioid use, unspecified, uncomplicated; Z86.14 Personal history of Methicillin resistant Staphylococcus aureus infection; Z56.0 Unemployment, unspecified; Z88.8 Allergy status to other drugs, medicaments and biological substances; Z79.2 Long term (current) use of antibiotics; Z79.899 Other long term (current) drug therapy
CPT/HCPCS: 36415; 71045; 80053; 84484; 85025; 93005; 99284

== ENCOUNTER 2019-05-12 11:31 | Emergency (ER) | payer MEDICAID ==
[~2019-05-12] VITALS: Ht 172.7 cm; Wt 59.1 kg
--- NOTE | 2019-05-12 11:35 | NUR ---
PT IN RESTROOM UNABLE TO CALL TO TRIAGE
[2019-05-12] MEDS ORDERED: normal saline 1000ML IV soln IV ONE (13:10)
[2019-05-12] MEDS ORDERED: iohexol 300mg/ml 100ml inj. ONE (13:43)
[2019-05-12 13:57] LABS: BASOPHILS # (AUTO) 0.1 X10'3 (0-0.2); BASOPHILS % (AUTO) 0.6 % (0-1); EOSINOPHILS # (AUTO) 0.4 X10'3 (0-0.9); EOSINOPHILS % (AUTO) 3.7 % (0-6); HEMATOCRIT 33.1 % (35.0-45.0); HEMOGLOBIN 11.3 g/dl (12.0-16.0); LYMPHOCYTES # (AUTO) 1.4 X10'3 (1.1-4.8); LYMPHOCYTES % (AUTO) 13.9 % (21-51); MEAN CORPUSCULAR HEMOGLOBIN 27.3 PG (27.0-31.0); MEAN CORPUSCULAR HGB CONC 34.1 g/dL (33.0-36.5); MEAN CORPUSCULAR VOLUME 80.1 FL (78-98); MEAN PLATELET VOLUME 7.6 FL (7.4-10.4); MONOCYTES # (AUTO) 0.8 X10'3 (0-0.9); MONOCYTES % (AUTO) 8.2 % (2-12); NEUTROPHILS # (AUTO) 7.6 X10'3 (1.8-7.7); NEUTROPHILS % (AUTO) 73.6 % (42-75); PLATELET COUNT 335 X10'3 (140-440); RED BLOOD COUNT 4.13 X10'6 (4.20-5.60); RED CELL DISTRIBUTION WIDTH 13.4 % (11.5-14.5); WHITE BLOOD COUNT 10.3 X10'3 (4.5-11.0)
[2019-05-12 14:04] LABS: ALANINE AMINOTRANSFERASE 52 U/L (12-78); ALBUMIN 3.1 G/DL (3.4-5.0); ALBUMIN/GLOBULIN RATIO 0.8 (1.1-1.5); ALKALINE PHOSPHATASE 111 IU/L (46-116); ANION GAP 6 (8-16); ASPARTATE AMINO TRANSFERASE 44 U/L (10-37); BILIRUBIN,TOTAL 0.5 MG/DL (0.1-1.0); BLOOD UREA NITROGEN 12 MG/DL (7-18); BUN/CREATININE RATIO 21.4 (6.6-38.0); CALCIUM 8.7 MG/DL (8.5-10.1); CHLORIDE 103 MMOL/L (99-107); CREATININE 0.56 MG/DL (0.40-0.90); GLUCOSE 98 MG/DL (70-104); SODIUM 140 MMOL/L (135-145); TOTAL CARBON DIOXIDE 30.6 MMOL/L (24-32); eGFR > 90 ML/MIN
[2019-05-12] MEDS ORDERED: SULF1TAB49 PO (14:26)
[2019-05-12] MEDS ORDERED: AMOX-422 PO (14:26)
[2019-05-12 14:31] LABS: URINE HCG NEGATIVE (NEG)
[2019-05-12 14:42] VITALS: BP 110/65
== END 2019-05-12 14:44 | disposition home or self-care (01) ==
LOC: ER 11:31
DX: L03.116 Cellulitis of left lower limb (principal); F19.10 Other psychoactive substance abuse, uncomplicated; G89.29 Other chronic pain; F15.90 Other stimulant use, unspecified, uncomplicated; F11.90 Opioid use, unspecified, uncomplicated; Z56.0 Unemployment, unspecified; Z86.14 Personal history of Methicillin resistant Staphylococcus aureus infection; Z88.6 Allergy status to analgesic agent; Z88.5 Allergy status to narcotic agent; Z79.899 Other long term (current) drug therapy
CPT/HCPCS: 36415; 73701; 80053; 81025; 83605; 84145; 85025; 87040; 87077; 87186; 99285; J7030; Q9967

== ENCOUNTER 2019-06-26 15:58 | Emergency (ER) | payer MEDICAID ==
[~2019-06-26] VITALS: Ht 172.7 cm; Wt 64.0 kg
[2019-06-26 16:28] VITALS: BP 118/78
== END 2019-06-26 20:53 | disposition left against medical advice (07) ==
LOC: ER 15:58
DX: Z53.21 Procedure and treatment not carried out due to patient leaving prior to being seen by health care provider (principal)

== ENCOUNTER 2019-06-28 08:35 | Emergency (ER) | payer MEDICAID ==
[~2019-06-28] VITALS: Ht 172.7 cm; Wt 80.0 kg
[~2019-06-28 08:35] MED LIST changes: +LIDOcaine 1% W/epiNEPHrine 1:100,000 20ml vial ONE
[2019-06-28 08:36] VITALS: BP 128/76
[2019-06-28] MEDS ORDERED: clindamycin 150mg capsule PO ONE (08:50)
[2019-06-28] MEDS ORDERED: ondansetron 4mg rapidly disintigrating tab PO ONE (08:50)
[2019-06-28] MEDS ORDERED: LIDOcaine 1.5% w/epinephrine 1:200,000 5ml ampul IJ ONE (08:50)
== END 2019-06-28 09:32 | disposition left against medical advice (07) ==
LOC: ER 08:35
DX: L02.415 Cutaneous abscess of right lower limb (principal); F11.90 Opioid use, unspecified, uncomplicated; L03.115 Cellulitis of right lower limb; G89.29 Other chronic pain; F41.9 Anxiety disorder, unspecified; F32.9 Major depressive disorder, single episode, unspecified; F15.90 Other stimulant use, unspecified, uncomplicated; Z86.14 Personal history of Methicillin resistant Staphylococcus aureus infection; Z56.0 Unemployment, unspecified; Z88.5 Allergy status to narcotic agent; Z79.899 Other long term (current) drug therapy; Z88.8 Allergy status to other drugs, medicaments and biological substances
CPT/HCPCS: 99283

== ENCOUNTER 2019-07-09 16:15 | Emergency (ER) | payer MEDICAID ==
[~2019-07-09] VITALS: Ht 172.7 cm; Wt 64.0 kg
[~2019-07-09 16:15] MED LIST changes: -LIDOcaine 1% W/epiNEPHrine 1:100,000 20ml vial ONE
[2019-07-09 16:30] VITALS: BP 128/68
[2019-07-09] MEDS ORDERED: DOXY100C77 PO (16:55)
[2019-07-09] MEDS ORDERED: IBUP-1984 PO (16:55)
[2019-07-09] MEDS ORDERED: CEPH-572 PO (16:55)
== END 2019-07-09 17:04 | disposition home or self-care (01) ==
LOC: ER 16:16
DX: L03.116 Cellulitis of left lower limb (principal); L03.115 Cellulitis of right lower limb; G89.29 Other chronic pain; F41.9 Anxiety disorder, unspecified; F32.9 Major depressive disorder, single episode, unspecified; F12.90 Cannabis use, unspecified, uncomplicated; F15.90 Other stimulant use, unspecified, uncomplicated; Z56.0 Unemployment, unspecified; Z86.14 Personal history of Methicillin resistant Staphylococcus aureus infection; Z88.5 Allergy status to narcotic agent; Z88.8 Allergy status to other drugs, medicaments and biological substances; Z79.2 Long term (current) use of antibiotics; Z79.899 Other long term (current) drug therapy
CPT/HCPCS: 99283

== ENCOUNTER 2019-10-05 13:36 | Emergency (ER) | payer MEDICAID ==
[~2019-10-05] VITALS: Ht 177.8 cm; Wt 80.0 kg
[2019-10-05 13:50] VITALS: BP 141/76
[2019-10-05] MEDS ORDERED: IBUP-1984 PO (14:38)
[2019-10-05] MEDS ORDERED: MUPI22OI30 TOP (14:38)
[2019-10-05] MEDS ORDERED: CEPH250T PO (14:38)
[2019-10-05] MEDS ORDERED: BACDS PO (14:38)
== END 2019-10-05 15:01 | disposition home or self-care (01) ==
LOC: ER 13:36
DX: L08.9 Local infection of the skin and subcutaneous tissue, unspecified (principal); G89.29 Other chronic pain; F41.9 Anxiety disorder, unspecified; F32.9 Major depressive disorder, single episode, unspecified; F15.90 Other stimulant use, unspecified, uncomplicated; F11.90 Opioid use, unspecified, uncomplicated; Z86.14 Personal history of Methicillin resistant Staphylococcus aureus infection; Z56.0 Unemployment, unspecified; Z88.5 Allergy status to narcotic agent; Z88.8 Allergy status to other drugs, medicaments and biological substances; Z79.899 Other long term (current) drug therapy
CPT/HCPCS: 99283

== ENCOUNTER 2019-11-22 12:17 | Emergency (ER) | payer MEDICAID ==
[~2019-11-22] VITALS: Ht 172.7 cm; Wt 62.1 kg
[~2019-11-22 12:17] MED LIST changes: +LIDOcaine 1% W/epiNEPHrine 1:200,000 10ml vial ONE
[2019-11-22 12:23] VITALS: BP 113/48
--- NOTE | 2019-11-22 13:15 | NUR ---
pt is 39 yo female c/o multiple abscesses to legs and arms x3-5 days, h/o using heroin, no drainage from abscesses, +redness, swelling and pain, has been evaluated by provider
[2019-11-22] MEDS ORDERED: DOXY150T8 PO (14:34)
== END 2019-11-22 14:53 | disposition left against medical advice (07) ==
LOC: ER 12:18
DX: L02.413 Cutaneous abscess of right upper limb (principal); L02.416 Cutaneous abscess of left lower limb; L02.415 Cutaneous abscess of right lower limb; G89.29 Other chronic pain; F41.9 Anxiety disorder, unspecified; F32.9 Major depressive disorder, single episode, unspecified; F15.90 Other stimulant use, unspecified, uncomplicated; F11.90 Opioid use, unspecified, uncomplicated; Z86.14 Personal history of Methicillin resistant Staphylococcus aureus infection; Z56.0 Unemployment, unspecified; Z88.8 Allergy status to other drugs, medicaments and biological substances; Z88.5 Allergy status to narcotic agent; Z79.899 Other long term (current) drug therapy
CPT/HCPCS: 99283

== ENCOUNTER 2019-12-08 12:46 | Emergency (ER) | payer MEDICAID ==
[~2019-12-08] VITALS: Ht 172.7 cm; Wt 59.1 kg
[~2019-12-08 12:46] MED LIST changes: -LIDOcaine 1% W/epiNEPHrine 1:200,000 10ml vial ONE
[2019-12-08] MEDS ORDERED: CEPH500C5 PO (15:26)
[2019-12-08] MEDS ORDERED: SULF1TAB49 PO (15:26)
[2019-12-08 15:39] VITALS: BP 122/80
== END 2019-12-08 15:41 | disposition home or self-care (01) ==
LOC: ER 12:49
DX: L02.211 Cutaneous abscess of abdominal wall (principal); G89.29 Other chronic pain; F41.9 Anxiety disorder, unspecified; F32.9 Major depressive disorder, single episode, unspecified; F15.90 Other stimulant use, unspecified, uncomplicated; F11.90 Opioid use, unspecified, uncomplicated; Z86.14 Personal history of Methicillin resistant Staphylococcus aureus infection; Z56.0 Unemployment, unspecified; Z88.5 Allergy status to narcotic agent; Z88.8 Allergy status to other drugs, medicaments and biological substances; Z79.2 Long term (current) use of antibiotics; Z79.899 Other long term (current) drug therapy
CPT/HCPCS: 99283

== ENCOUNTER 2019-12-13 02:33 | Emergency (ER) | payer MEDICAID ==
[~2019-12-13] VITALS: Ht 172.7 cm; Wt 59.1 kg
[~2019-12-13 02:33] MED LIST changes: +CEPH500C5 PO; +SULF1TAB49 PO
[2019-12-13 03:32] VITALS: BP 111/69
== END 2019-12-13 03:34 | disposition home or self-care (01) ==
LOC: ER 02:33
DX: R00.2 Palpitations (principal); G89.29 Other chronic pain; F41.9 Anxiety disorder, unspecified; F32.9 Major depressive disorder, single episode, unspecified; F15.90 Other stimulant use, unspecified, uncomplicated; F11.90 Opioid use, unspecified, uncomplicated; Z86.14 Personal history of Methicillin resistant Staphylococcus aureus infection; Z56.0 Unemployment, unspecified; Z88.5 Allergy status to narcotic agent; Z88.8 Allergy status to other drugs, medicaments and biological substances; Z79.899 Other long term (current) drug therapy
CPT/HCPCS: 93005; 99283

== ENCOUNTER 2019-12-22 11:18 | Emergency (ER) | payer MEDICAID ==
[~2019-12-22] VITALS: Ht 172.7 cm; Wt 58.0 kg
[~2019-12-22 11:18] MED LIST changes: -CEPH500C5 PO; -SULF1TAB49 PO
[2019-12-22 11:27] VITALS: BP 95/64
== END 2019-12-22 12:25 | disposition home or self-care (01) ==
LOC: ER 11:19
DX: L02.414 Cutaneous abscess of left upper limb (principal); M79.602 Pain in left arm; G89.29 Other chronic pain; F41.9 Anxiety disorder, unspecified; F32.9 Major depressive disorder, single episode, unspecified; F15.90 Other stimulant use, unspecified, uncomplicated; F11.90 Opioid use, unspecified, uncomplicated; Z86.14 Personal history of Methicillin resistant Staphylococcus aureus infection; Z56.0 Unemployment, unspecified; Z88.5 Allergy status to narcotic agent; Z88.8 Allergy status to other drugs, medicaments and biological substances; Z79.2 Long term (current) use of antibiotics; Z79.899 Other long term (current) drug therapy
CPT/HCPCS: 99284

== ENCOUNTER 2019-12-26 02:32 | Emergency (ER) | payer MEDICAID ==
[~2019-12-26] VITALS: Ht 172.7 cm; Wt 58.0 kg
[2019-12-26] MEDS ORDERED: DOXY-11 PO (03:10)
[2019-12-26] MEDS ORDERED: DOXYCYCLINE 100MG CAPSULE PO STA (03:10)
[2019-12-26 03:35] VITALS: BP 110/74
== END 2019-12-26 03:39 | disposition home or self-care (01) ==
LOC: ER 02:33
DX: S40.812A Abrasion of left upper arm, initial encounter (principal); L03.112 Cellulitis of left axilla; G89.29 Other chronic pain; F41.9 Anxiety disorder, unspecified; F32.9 Major depressive disorder, single episode, unspecified; F17.200 Nicotine dependence, unspecified, uncomplicated; F15.90 Other stimulant use, unspecified, uncomplicated; F11.90 Opioid use, unspecified, uncomplicated; Z56.0 Unemployment, unspecified; Z88.8 Allergy status to other drugs, medicaments and biological substances; Z88.5 Allergy status to narcotic agent; Z79.899 Other long term (current) drug therapy; X58.XXXA Exposure to other specified factors, initial encounter; Y93.89 Activity, other specified; Y92.89 Other specified places as the place of occurrence of the external cause; Y99.8 Other external cause status
CPT/HCPCS: 99283

== ENCOUNTER 2020-01-04 16:55 | Emergency (ER) | payer MEDICAID ==
[~2020-01-04] VITALS: Ht 172.7 cm; Wt 58.5 kg
[~2020-01-04 16:55] MED LIST changes: +DOXY-11 PO
[2020-01-04 17:00] VITALS: BP 114/72
== END 2020-01-04 20:20 | disposition left against medical advice (07) ==
LOC: ER 16:56
DX: L02.211 Cutaneous abscess of abdominal wall (principal); Z53.21 Procedure and treatment not carried out due to patient leaving prior to being seen by health care provider
CPT/HCPCS: 93005

== ENCOUNTER 2020-03-04 20:32 | Emergency (ER) | payer MEDICAID ==
[~2020-03-04] VITALS: Ht 172.7 cm; Wt 62.0 kg
[~2020-03-04 20:32] MED LIST changes: -DOXY-11 PO
[2020-03-04 21:04] VITALS: BP 117/79
[2020-03-04] MEDS ORDERED: NALO4SPR BOTHNARES ×2 (22:40→23:18)
[2020-03-04] MEDS ORDERED: DOXY100C43 PO (22:40)
[2020-03-04] MEDS ORDERED: SULF1TAB49 PO (23:18)
[2020-03-04] MEDS ORDERED: CEPH500C5 PO (23:18)
[2020-03-04] MEDS ORDERED: sulfamethoxazole/trimethoprim DS (800/160mg) tablet PO ONE (23:20)
[2020-03-04] MEDS ORDERED: cephalexin 250mg capsule PO ONE (23:20)
[2020-03-04] MEDS ORDERED: ibuprofen tablet 400 MG TABLET PO ONE (23:20)
== END 2020-03-04 23:41 | disposition home or self-care (01) ==
LOC: ER 20:33
DX: L03.90 Cellulitis, unspecified (principal); R11.2 Nausea with vomiting, unspecified; G89.29 Other chronic pain; M54.9 Dorsalgia, unspecified; F41.9 Anxiety disorder, unspecified; F32.9 Major depressive disorder, single episode, unspecified; Z56.0 Unemployment, unspecified; F15.10 Other stimulant abuse, uncomplicated; F11.10 Opioid abuse, uncomplicated; Z87.19 Personal history of other diseases of the digestive system; Z88.5 Allergy status to narcotic agent; Z88.6 Allergy status to analgesic agent; Z79.899 Other long term (current) drug therapy
CPT/HCPCS: 76882; 99284

== ENCOUNTER 2020-03-07 18:19 | Emergency (ER) | payer MEDICAID ==
[~2020-03-07] VITALS: Ht 172.7 cm; Wt 59.1 kg
[~2020-03-07 18:19] MED LIST changes: +CEPH500C5 PO; -CLIN-5 PO; +NALO4SPR BOTHNARES; +SULF1TAB49 PO
[2020-03-07] MEDS ORDERED: ibuprofen tablet 400 MG TABLET PO ONE (19:05)
[2020-03-07] MEDS ORDERED: cefepime 1GM/NS ADD-VANTAGE 100 ML IV ONE (19:10)
[2020-03-07] MEDS ORDERED: iohexol 300mg/ml 100ml inj. ONE (19:22)
[2020-03-07 19:56] LABS: HCG SERUM QL NEGATIVE
[2020-03-07 19:57] LABS: ALANINE AMINOTRANSFERASE 106 U/L (12-78); ALBUMIN 3.7 G/DL (3.4-5.0); ALBUMIN/GLOBULIN RATIO 1.1 (1.1-1.5); ALKALINE PHOSPHATASE 132 IU/L (46-116); ANION GAP 6 (8-16); ASPARTATE AMINO TRANSFERASE 95 U/L (10-37); BILIRUBIN,TOTAL 0.4 MG/DL (0.1-1.0); BLOOD UREA NITROGEN 10 MG/DL (7-18); BUN/CREATININE RATIO 11.5 (6.6-38.0); C-REACTIVE PROTEIN 1.86 MG/DL (0.0-0.5); CALCIUM 8.7 MG/DL (8.5-10.1); CHLORIDE 105 MMOL/L (99-107); CREATININE 0.87 MG/DL (0.40-0.90); GLUCOSE 114 MG/DL (70-104); POTASSIUM 4.5 MMOL/L (3.5-5.1); SODIUM 140 MMOL/L (135-145); TOTAL CARBON DIOXIDE 29.2 MMOL/L (24-32); TOTAL PROTEIN 7.2 G/DL (6.4-8.2); eGFR 73 ML/MIN
[2020-03-07 20:36] LABS: CLARITY,URINE CLEAR (Clear); COLOR,URINE YELLOW (Yellow); GLUCOSE, URINE NEGATIVE (Neg); KETONES,URINE NEGATIVE (Neg); LEUKOCYTE ESTERASE ,URINE NEGATIVE (Neg); NITRITES, URINE NEGATIVE (Neg); OCCULT BLOOD,URINE NEGATIVE (Neg); PROTEIN,URINE NEGATIVE (Neg); UA COLLECTION TYPE CLN CATCH MIDSTREAM; UROBILINOGEN,URINE 0.2 E.U/dL (0.2-1.0)
[2020-03-07 21:06] VITALS: BP 91/78
[2020-03-07 21:09] LABS: BASOPHILS # (AUTO) 0.1 X10'3 (0-0.2); BASOPHILS % (AUTO) 1.1 % (0-1); EOSINOPHILS # (AUTO) 0.3 X10'3 (0-0.9); EOSINOPHILS % (AUTO) 5.3 % (0-6); HEMATOCRIT 32.3 % (35.0-45.0); HEMOGLOBIN 10.9 g/dl (12.0-16.0); LYMPHOCYTES # (AUTO) 1.1 X10'3 (1.1-4.8); LYMPHOCYTES % (AUTO) 17.6 % (21-51); MEAN CORPUSCULAR HEMOGLOBIN 28.2 PG (27.0-31.0); MEAN CORPUSCULAR HGB CONC 33.8 g/dL (33.0-36.5); MEAN CORPUSCULAR VOLUME 83.4 FL (78-98); MEAN PLATELET VOLUME 7.3 FL (7.4-10.4); MONOCYTES # (AUTO) 0.3 X10'3 (0-0.9); MONOCYTES % (AUTO) 5.3 % (2-12); NEUTROPHILS # (AUTO) 4.4 X10'3 (1.8-7.7); NEUTROPHILS % (AUTO) 70.7 % (42-75); PLATELET COUNT 314 X10'3 (140-440); RED BLOOD COUNT 3.87 X10'6 (4.20-5.60); RED CELL DISTRIBUTION WIDTH 14.4 % (11.5-14.5); WHITE BLOOD COUNT 6.3 X10'3 (4.5-11.0)
== END 2020-03-07 22:03 | disposition home or self-care (01) ==
LOC: ER 18:20
DX: M54.5 Low back pain (principal); L02.419 Cutaneous abscess of limb, unspecified; R60.0 Localized edema; Z87.19 Personal history of other diseases of the digestive system; F41.9 Anxiety disorder, unspecified; F32.9 Major depressive disorder, single episode, unspecified; Z88.6 Allergy status to analgesic agent; Z88.5 Allergy status to narcotic agent; Z79.899 Other long term (current) drug therapy
CPT/HCPCS: 36415; 72132; 80053; 81003; 83605; 84703; 85025; 85651; 86140; 87040; 96365; 99285; J0692; Q9967

== ENCOUNTER 2020-04-02 02:41 | Emergency (ER) | payer MEDICAID ==
[~2020-04-02] VITALS: Ht 172.7 cm; Wt 61.0 kg
[~2020-04-02 02:41] MED LIST changes: -SULF1TAB49 PO
[2020-04-02] MEDS ORDERED: CYCL-1 PO (03:19)
--- NOTE | 2020-04-02 03:34 | NUR ---
call joshua for a ride when ready
[2020-04-02 04:16] LABS: BASOPHILS # (AUTO) 0.1 X10'3 (0-0.2); BASOPHILS % (AUTO) 0.9 % (0-1); EOSINOPHILS # (AUTO) 0.5 X10'3 (0-0.9); EOSINOPHILS % (AUTO) 7.1 % (0-6); HEMATOCRIT 29.7 % (35.0-45.0); HEMOGLOBIN 10.2 g/dl (12.0-16.0); LYMPHOCYTES # (AUTO) 1.3 X10'3 (1.1-4.8); LYMPHOCYTES % (AUTO) 20.1 % (21-51); MEAN CORPUSCULAR HEMOGLOBIN 29.1 PG (27.0-31.0); MEAN CORPUSCULAR HGB CONC 34.5 g/dL (33.0-36.5); MEAN CORPUSCULAR VOLUME 84.3 FL (78-98); MEAN PLATELET VOLUME 7.7 FL (7.4-10.4); MONOCYTES # (AUTO) 0.6 X10'3 (0-0.9); MONOCYTES % (AUTO) 8.8 % (2-12); NEUTROPHILS # (AUTO) 4.2 X10'3 (1.8-7.7); NEUTROPHILS % (AUTO) 63.1 % (42-75); PLATELET COUNT 284 X10'3 (140-440); RED BLOOD COUNT 3.52 X10'6 (4.20-5.60); RED CELL DISTRIBUTION WIDTH 13.7 % (11.5-14.5); WHITE BLOOD COUNT 6.7 X10'3 (4.5-11.0)
[2020-04-02 04:26] LABS: ALANINE AMINOTRANSFERASE 89 U/L (12-78); ALBUMIN 3.5 G/DL (3.4-5.0); ALBUMIN/GLOBULIN RATIO 0.9 (1.1-1.5); ALKALINE PHOSPHATASE 115 IU/L (46-116); ANION GAP 6 (8-16); ASPARTATE AMINO TRANSFERASE 113 U/L (10-37); BILIRUBIN,TOTAL 0.4 MG/DL (0.1-1.0); BLOOD UREA NITROGEN 18 MG/DL (7-18); BUN/CREATININE RATIO 25.4 (6.6-38.0); CALCIUM 8.7 MG/DL (8.5-10.1); CHLORIDE 104 MMOL/L (99-107); CREATININE 0.71 MG/DL (0.40-0.90); GLUCOSE 92 MG/DL (70-104); POTASSIUM 4.3 MMOL/L (3.5-5.1); SODIUM 140 MMOL/L (135-145); TOTAL CARBON DIOXIDE 29.6 MMOL/L (24-32); TOTAL PROTEIN 7.2 G/DL (6.4-8.2); eGFR > 90 ML/MIN
--- NOTE | 2020-04-02 04:53 | NUR ---
Pt's bp 89/57. Dr. Malik aware and no new orders received. He reports Pt to be discharged.
[2020-04-02] MEDS ORDERED: CEPH-572 PO (05:03)
[2020-04-02] MEDS ORDERED: SULF1TAB49 PO (05:03)
[2020-04-02 05:47] VITALS: BP 88/44
== END 2020-04-02 05:50 | disposition home or self-care (01) ==
LOC: ER 02:42
DX: L02.413 Cutaneous abscess of right upper limb (principal); L02.414 Cutaneous abscess of left upper limb; L02.415 Cutaneous abscess of right lower limb; L02.416 Cutaneous abscess of left lower limb; L03.90 Cellulitis, unspecified; F19.10 Other psychoactive substance abuse, uncomplicated; G89.29 Other chronic pain; F17.200 Nicotine dependence, unspecified, uncomplicated; F15.90 Other stimulant use, unspecified, uncomplicated; Z72.89 Other problems related to lifestyle; Z86.14 Personal history of Methicillin resistant Staphylococcus aureus infection; Z86.19 Personal history of other infectious and parasitic diseases; Z56.0 Unemployment, unspecified; Z88.8 Allergy status to other drugs, medicaments and biological substances; Z79.2 Long term (current) use of antibiotics; Z79.899 Other long term (current) drug therapy
CPT/HCPCS: 36415; 74019; 80053; 83605; 85025; 87040; 93005; 99285

== ENCOUNTER 2020-05-06 14:50 | Emergency (ER) | payer MEDICAID ==
[~2020-05-06] VITALS: Ht 172.7 cm; Wt 68.2 kg
[~2020-05-06 14:50] MED LIST changes: -CEPH500C5 PO; +CYCL-1 PO; -NALO4SPR BOTHNARES
[2020-05-06 14:56] VITALS: BP 108/38
[2020-05-06 15:35] LABS: URINE HCG NEGATIVE (NEG)
[2020-05-06 15:41] LABS: CLARITY,URINE CLOUDY (Clear)
[2020-05-06 15:46] LABS: COLOR,URINE ORANGE (Yellow); UA COLLECTION TYPE CLN CATCH MIDSTREAM
[2020-05-06 15:56] LABS: BACTERIA,URINE 3+ /HPF (Neg); RBC,URINE 0-2 /HPF (0-2); SQUAMOUS EPITHELIAL CELL,UR MODERATE /LPF (FEW); WBC,URINE 50-100 /HPF (0-4)
[2020-05-06 15:57] LABS: MUCUS STRANDS FEW /LPF (Neg); WBC CLUMPS,URINE FEW /HPF (NEGATIVE)
[2020-05-06] MEDS ORDERED: SULF1TAB49 PO (16:00)
--- NOTE | 2020-05-09 09:19 | NUR ---
UNABLE TO CONTACT PATIENT TO INFORM HER OF NEED TO CHANGE ANTIBIOTIC TO KEFLEX 5000MG PO BID PER DR. ROPER. LETTER SENT.
== END 2020-05-06 16:23 | disposition home or self-care (01) ==
LOC: ER 14:51
DX: N39.0 Urinary tract infection, site not specified (principal); G89.29 Other chronic pain; Z86.19 Personal history of other infectious and parasitic diseases; Z86.14 Personal history of Methicillin resistant Staphylococcus aureus infection; Z56.0 Unemployment, unspecified
CPT/HCPCS: 81001; 81025; 87077; 87088; 87186; 99283

== ENCOUNTER 2021-01-02 15:05 | Emergency (ER) | payer MEDICAID ==
[~2021-01-02] VITALS: Ht 172.7 cm; Wt 52.3 kg
[2021-01-02 15:09] VITALS: BP 120/79
[2021-01-02] MEDS ORDERED: normal saline 1000ML IV soln IV ONE (15:15)
[2021-01-02 15:38] LABS: BASOPHILS % (AUTO) 0.3 % (0-1); EOSINOPHILS # (AUTO) 0.2 X10'3 (0-0.9); EOSINOPHILS % (AUTO) 2.8 % (0-6); HEMATOCRIT 29.8 % (35.0-45.0); HEMOGLOBIN 10.3 g/dl (12.0-16.0); LYMPHOCYTES # (AUTO) 0.9 X10'3 (1.1-4.8); LYMPHOCYTES % (AUTO) 11.3 % (21-51); MEAN CORPUSCULAR HGB CONC 34.7 g/dL (33.0-36.5); MEAN CORPUSCULAR VOLUME 83.6 FL (78-98); MEAN PLATELET VOLUME 7.5 FL (7.4-10.4); MONOCYTES # (AUTO) 0.4 X10'3 (0-0.9); MONOCYTES % (AUTO) 5.2 % (2-12); NEUTROPHILS # (AUTO) 6.1 X10'3 (1.8-7.7); NEUTROPHILS % (AUTO) 80.4 % (42-75); PLATELET COUNT 235 X10'3 (140-440); RED BLOOD COUNT 3.56 X10'6 (4.20-5.60); RED CELL DISTRIBUTION WIDTH 13.7 % (11.5-14.5); WHITE BLOOD COUNT 7.5 X10'3 (4.5-11.0)
[2021-01-02 15:52] LABS: ALANINE AMINOTRANSFERASE 44 U/L (12-78); ALBUMIN 3.6 G/DL (3.4-5.0); ALBUMIN/GLOBULIN RATIO 0.9 (1.1-1.5); ALKALINE PHOSPHATASE 105 IU/L (46-116); ANION GAP 11 (8-16); ASPARTATE AMINO TRANSFERASE 40 U/L (10-37); BILIRUBIN,TOTAL 0.3 MG/DL (0.1-1.0); BLOOD UREA NITROGEN 13 MG/DL (7-18); BUN/CREATININE RATIO 14.9 (6.6-38.0); CALCIUM 8.7 MG/DL (8.5-10.1); CHLORIDE 105 MMOL/L (99-107); CREATININE 0.87 MG/DL (0.40-0.90); GLUCOSE 109 MG/DL (70-104); MAGNESIUM 2.1 MG/DL (1.5-2.4); POTASSIUM 4.2 MMOL/L (3.5-5.1); SODIUM 142 MMOL/L (135-145); TOTAL CARBON DIOXIDE 25.9 MMOL/L (24-32); TOTAL PROTEIN 7.6 G/DL (6.4-8.2); eGFR 72 ML/MIN
== END 2021-01-02 19:02 | disposition left against medical advice (07) ==
LOC: ER 15:06
DX: L02.211 Cutaneous abscess of abdominal wall (principal); F31.9 Bipolar disorder, unspecified; F15.10 Other stimulant abuse, uncomplicated; Z56.0 Unemployment, unspecified; Z88.6 Allergy status to analgesic agent; Z88.5 Allergy status to narcotic agent; Z79.899 Other long term (current) drug therapy
CPT/HCPCS: 36415; 80053; 83605; 83735; 84145; 85025; 87040; 99283

== ENCOUNTER 2021-01-03 10:52 | Emergency (ER) | payer MEDICAID ==
[~2021-01-03] VITALS: Ht 172.7 cm; Wt 52.3 kg
[2021-01-03] MEDS ORDERED: acetaminophen 325mg tablet PO STA (11:03)
[2021-01-03] MEDS ORDERED: LIDOcaine 1% W/epiNEPHrine 1:200,000 10ml vial IJ ONE ×2 (11:05→11:55)
[2021-01-03] MEDS ORDERED: normal saline 1000ML IV soln IV ONE ×2 (11:05→13:45)
[2021-01-03 12:13] LABS: EOSINOPHILS # (AUTO) 0.1 X10'3 (0-0.9); HEMOGLOBIN 11.9 g/dl (12.0-16.0); LYMPHOCYTES # (AUTO) 0.6 X10'3 (1.1-4.8); MEAN PLATELET VOLUME 8.1 FL (7.4-10.4); MONOCYTES # (AUTO) 0.2 X10'3 (0-0.9); NEUTROPHILS # (AUTO) 5.5 X10'3 (1.8-7.7); WHITE BLOOD COUNT 6.4 X10'3 (4.5-11.0)
[2021-01-03 12:15] LABS: BASOPHILS % (AUTO) 0.3 % (0-1); HEMATOCRIT 35.4 % (35.0-45.0); LYMPHOCYTES % (AUTO) 8.8 % (21-51); MEAN CORPUSCULAR HEMOGLOBIN 28.7 PG (27.0-31.0); MEAN CORPUSCULAR HGB CONC 33.6 g/dL (33.0-36.5); MEAN CORPUSCULAR VOLUME 85.3 FL (78-98); MONOCYTES % (AUTO) 3.4 % (2-12); NEUTROPHILS % (AUTO) 86.5 % (42-75); PLATELET COUNT 267 X10'3 (140-440); RED BLOOD COUNT 4.15 X10'6 (4.20-5.60); RED CELL DISTRIBUTION WIDTH 14.1 % (11.5-14.5)
[2021-01-03] MEDS ORDERED: LIDOcaine 1% w/epiNEPHrine 1:200,000 30ml vial IJ ONE (12:30)
[2021-01-03 12:55] LABS: ALANINE AMINOTRANSFERASE 45 U/L (12-78); ALBUMIN 3.9 G/DL (3.4-5.0); ALBUMIN/GLOBULIN RATIO 0.9 (1.1-1.5); ALKALINE PHOSPHATASE 107 IU/L (46-116); ANION GAP 10 (8-16); ASPARTATE AMINO TRANSFERASE 44 U/L (10-37); BILIRUBIN,TOTAL 0.4 MG/DL (0.1-1.0); BLOOD UREA NITROGEN 12 MG/DL (7-18); CALCIUM 9.3 MG/DL (8.5-10.1); CHLORIDE 104 MMOL/L (99-107); CREATININE 0.86 MG/DL (0.40-0.90); GLUCOSE 110 MG/DL (70-104); MAGNESIUM 2.4 MG/DL (1.5-2.4); SODIUM 135 MMOL/L (135-145); TOTAL CARBON DIOXIDE 21.5 MMOL/L (24-32); TOTAL PROTEIN 8.1 G/DL (6.4-8.2); eGFR 73 ML/MIN
[2021-01-03 12:59] LABS: POTASSIUM 4.5 MMOL/L (3.5-5.1)
--- NOTE | 2021-01-03 13:04 | NUR ---
Patient urinated all over floor, took pants off and laid back into bed with blanket on top of her. Patient refusing to answer why she urinated on floor. Floor mopped, patient reconnected to vital signs machine and educated on use of bedside commode.
[2021-01-03] MEDS ORDERED: piperacillin/tazo 3.375gm/50ml 50 ML IV ONE (13:45)
[2021-01-03] MEDS ORDERED: fentaNYL/PF 50MCG/1 ML 2ML syringe IV ONE (14:45)
[2021-01-03 15:29] VITALS: BP 119/74
== END 2021-01-03 15:36 | disposition home or self-care (01) ==
LOC: ER 10:52
DX: L02.211 Cutaneous abscess of abdominal wall (principal); G89.29 Other chronic pain; Z86.14 Personal history of Methicillin resistant Staphylococcus aureus infection; Z86.19 Personal history of other infectious and parasitic diseases; F15.90 Other stimulant use, unspecified, uncomplicated; F11.90 Opioid use, unspecified, uncomplicated; Z59.00 Homelessness unspecified; Z88.8 Allergy status to other drugs, medicaments and biological substances; Z79.899 Other long term (current) drug therapy
CPT/HCPCS: 10061; 36415; 80053; 83605; 83735; 84145; 85025; 87040; 96361; 96365; 96366; 96375; 99284; J2543; J3010; J7030

== ENCOUNTER 2021-06-24 22:29 | Emergency (ER) | payer MEDICAID ==
[~2021-06-24] VITALS: Ht 170.2 cm; Wt 64.0 kg
[2021-06-24 23:40] LABS: HEMOGLOBIN 12.2 g/dl (12.0-16.0); MEAN CORPUSCULAR HEMOGLOBIN 28.8 PG (27.0-31.0); MEAN PLATELET VOLUME 7.6 FL (7.4-10.4); RED BLOOD COUNT 4.23 X10'6 (4.20-5.60)
[2021-06-24 23:41] LABS: BASOPHILS # (AUTO) 0.1 X10'3 (0-0.2); BASOPHILS % (AUTO) 1.5 % (0-1); EOSINOPHILS # (AUTO) 0.2 X10'3 (0-0.9); EOSINOPHILS % (AUTO) 5.9 % (0-6); HEMATOCRIT 35.4 % (35.0-45.0); LYMPHOCYTES # (AUTO) 1.1 X10'3 (1.1-4.8); LYMPHOCYTES % (AUTO) 29.5 % (21-51); MEAN CORPUSCULAR HGB CONC 34.5 g/dL (33.0-36.5); MEAN CORPUSCULAR VOLUME 83.6 FL (78-98); MONOCYTES # (AUTO) 0.2 X10'3 (0-0.9); MONOCYTES % (AUTO) 6.3 % (2-12); NEUTROPHILS # (AUTO) 2.1 X10'3 (1.8-7.7); NEUTROPHILS % (AUTO) 56.8 % (42-75); PLATELET COUNT 240 X10'3 (140-440); RED CELL DISTRIBUTION WIDTH 13.4 % (11.5-14.5); WHITE BLOOD COUNT 3.7 X10'3 (4.5-11.0)
[2021-06-24 23:53] LABS: ALANINE AMINOTRANSFERASE 77 U/L (12-78); ALBUMIN 3.7 G/DL (3.4-5.0); ALBUMIN/GLOBULIN RATIO 1.1 (1.1-1.5); ALKALINE PHOSPHATASE 98 IU/L (46-116); ANION GAP 9 (8-16); ASPARTATE AMINO TRANSFERASE 56 U/L (10-37); BILIRUBIN,TOTAL 0.4 MG/DL (0.1-1.0); BLOOD UREA NITROGEN 14 MG/DL (7-18); BUN/CREATININE RATIO 17.5 (6.6-38.0); CALCIUM 7.9 MG/DL (8.5-10.1); CHLORIDE 101 MMOL/L (99-107); GLUCOSE 105 MG/DL (70-104); POTASSIUM 4.2 MMOL/L (3.5-5.1); SODIUM 138 MMOL/L (135-145); TOTAL CARBON DIOXIDE 28.5 MMOL/L (24-32); TOTAL PROTEIN 7.2 G/DL (6.4-8.2); eGFR 79 ML/MIN
[2021-06-25 01:49] LABS: CLARITY,URINE CLEAR (Clear); COLOR,URINE YELLOW (Yellow); GLUCOSE, URINE NEGATIVE (Neg); KETONES,URINE NEGATIVE (Neg); LEUKOCYTE ESTERASE ,URINE NEGATIVE (Neg); NITRITES, URINE NEGATIVE (Neg); OCCULT BLOOD,URINE NEGATIVE (Neg); PROTEIN,URINE NEGATIVE (Neg); UROBILINOGEN,URINE 0.2 E.U/dL (0.2-1.0)
[2021-06-25 01:52] LABS: UA COLLECTION TYPE CLN CATCH MIDSTREAM
[2021-06-25 02:56] VITALS: BP 96/51
== END 2021-06-25 03:01 | disposition home or self-care (01) ==
LOC: ER 22:30
DX: T24.002D Burn of unspecified degree of unspecified site of left lower limb, except ankle and foot, subsequent encounter (principal); G89.29 Other chronic pain; F41.9 Anxiety disorder, unspecified; F31.9 Bipolar disorder, unspecified; F15.90 Other stimulant use, unspecified, uncomplicated; F11.90 Opioid use, unspecified, uncomplicated; F19.90 Other psychoactive substance use, unspecified, uncomplicated; Z86.19 Personal history of other infectious and parasitic diseases; Z86.14 Personal history of Methicillin resistant Staphylococcus aureus infection; Z56.0 Unemployment, unspecified; Z88.5 Allergy status to narcotic agent; Z88.8 Allergy status to other drugs, medicaments and biological substances; Z79.899 Other long term (current) drug therapy; X08.8XXD Exposure to other specified smoke, fire and flames, subsequent encounter
CPT/HCPCS: 36415; 71045; 80053; 81003; 83605; 84145; 84484; 85025; 87040; 99284